=== PATIENT | female | born 1990 | race Caucasian/White ===

== ENCOUNTER 2019-08-25 13:59 | Emergency (ER) | payer BC ==
--- NOTE | 2019-08-25 15:26 | EDM.PDOC ---
ED HPI GENERAL MEDICAL PROBLEM - General Chief Complaint: Abdominal Pain Stated Complaint: BLOOD IN STOOL Time Seen by Provider: 08/25/19 14:30 Source of Information: Reports: Patient History Limitations: Reports: No Limitations - History of Present Illness INITIAL COMMENTS - FREE TEXT/NARRATIVE: Vero is a 29 year old female who presents today after having a bloody stool. 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 Last night she was at a local [employer] restaurant and had cheese dip. She states at 0430 this morning she awoke and had a loose stool. Went back to bed. today around 1 hours prior to arrival in the eR she felt the need to defecate. She had an episode of bright red blood, no stool. She denies any abdominal pain, fevers, chills, vomiting or melena. She states she has not been feeling well all week and has been feeling nauseate. She has never had anything like this before. Abdomen Pain Score (Numeric/FACES): 1 - Related Data Allergies Allergy/AdvReac Type Severity Reaction Status Date / Time No Known Allergies Allergy Verified 08/25/19 14:11 Home Meds: Home Meds . [No Known Home Meds] 08/25/19 [History] Past Medical History - Past Health History Medical/Surgical History: Denies Medical/Surgical History Social & Family History - Tobacco Use Smoking Status *Q: Never Smoker - Caffeine Use Caffeine Use: Reports: Coffee - Recreational Drug Use Recreational Drug Use: No ED ROS GENERAL - Review of Systems Review Of Systems: See Below Constitutional: Reports: Malaise. Denies: Fever, Chills GI/Abdominal: Reports: Bloody Stool, Nausea. Denies: Abdominal Pain, Constipation, Diarrhea, Melena, Vomiting : Reports: No Symptoms ED EXAM, GI/ABD - Physical Exam Exam: See Below Exam Limited By: No Limitations General Appearance: Alert, WD/WN, No Apparent Distress Respiratory/Chest: No Respiratory Distress, Lungs Clear, Normal Breath Sounds Cardiovascular: Normal Peripheral Pulses, Regular Rate, Rhythm, No Murmur GI/Abdominal Exam: Normal Bowel Sounds, Soft, Non-Tender Rectal (Female) Exam: Normal Exam, Normal Rectal Tone, Heme + Stool Neurological: Alert, Oriented, Normal Cognition Psychiatric: Normal Affect, Normal Mood Skin Exam: Warm, Dry, Normal Color Course - Vital Signs Last Recorded V/S: Last Vital Signs Temp 98.4 F 08/25/19 14:15 Pulse 73 08/25/19 14:15 Resp 20 08/25/19 14:15 BP 116/72 08/25/19 14:15 Pulse Ox 99 08/25/19 14:15 - Orders/Labs/Meds Labs: Laboratory Tests 08/25/19 08/25/19 Range/Units 14:48 14:48 WBC 7.15 (3.98-10.04) K/mm3 RBC 3.87 L (3.98-5.22) M/mm3 Hgb 12.4 (11.2-15.7) gm/dl Hct 39.1 (34.1-44.9) % MCV 101.0 H (79.4-94.8) fl MCH 32.0 (25.6-32.2) pg MCHC 31.7 L (32.2-35.5) g/dl RDW Std Deviation 42.8 (36.4-46.3) fL Plt Count 224 (182-369) K/mm3 MPV 11.1 (9.4-12.3) fl Neut % (Auto) 68.6 (34.0-71.1) % Lymph % (Auto) 22.9 (19.3-51.7) % Carson % (Auto) 7.0 (4.7-12.5) % Eos % (Auto) 1.1 (0.7-5.8) Baso % (Auto) 0.3 (0.1-1.2) % Neut # (Auto) 4.90 (1.56-6.13) K/mm3 Lymph # (Auto) 1.64 (1.18-3.74) K/mm3 Carson # (Auto) 0.50 H (0.24-0.36) K/mm3 Eos # (Auto) 0.08 (0.04-0.36) K/mm3 Baso # (Auto) 0.02 (0.01-0.08) K/mm3 Sodium 141 (136-145) mEq/L Potassium 3.9 (3.5-5.1) mEq/L Chloride 104 (98-107) mEq/L Carbon Dioxide 26 (21-32) mEq/L Anion Gap 14.9 (5-15) BUN 8 (7-18) mg/dL Creatinine 0.8 (0.55-1.02) mg/dL Est Cr Clr Drug Dosing 115.97 mL/min Estimated GFR (MDRD) > 60 (>60) mL/min BUN/Creatinine Ratio 10.0 L (14-18) Glucose 99 (74-106) mg/dL Calcium 8.9 (8.5-10.1) mg/dL Total Bilirubin 0.5 (0.2-1.0) mg/dL AST 12 L (15-37) U/L ALT 15 (14-59) U/L Alkaline Phosphatase 59 (46-116) U/L C-Reactive Protein 0.2 (<1.0) mg/dL Total Protein 7.5 (6.4-8.2) g/dl Albumin 3.9 (3.4-5.0) g/dl Globulin 3.6 gm/dL Albumin/Globulin Ratio 1.1 (1-2) - Radiology Interpretation Free Text/Narrative:: abdominal xray shows nothing acute. normal bowel gas pattern, no dilated colon - Re-Assessments/Exams Free Text/Narrative Re-Assessment/Exam: 08/25/19 15:53 I reviewed the labs and imaging with the patient. I feel she is safe to go home at this point. I recommend follow-up with a PCP this week. She may require further testing such as stools studies or a colonoscopy if she does not improve. Discharge instructions as documented. Departure - Departure Time of Disposition: 15:58 Disposition: Home, Self-Care 01 Condition: Good Clinical Impression: Colitis - Discharge Information *PRESCRIPTION DRUG MONITORING PROGRAM REVIEWED*: No *COPY OF PRESCRIPTION DRUG MONITORING REPORT IN PATIENT DOROTHY: No Instructions: Rectal Bleeding, [id number] Referrals: PCP,None [Primary Care Provider] - Sandhya Cuevas PA-C [Physician [employer]] - Forms: ED Department Discharge Additional Instructions: Recommend OTC tylenol or motrin if needing anything for pain. Follow-up with [facility] this week for a recheck of your symptoms. Here in [place] recommend Sandhya Cuevas or Dr. Ellis. Call [phone] to schedule with one of these providers. Recommend bland foods such as soup broth, eggs whites, bread, rice, etc for the next 1-2 days. May advance to a normal diet as tolerated. Please return to the ER should your symptoms change or worsen. Sepsis Event Note - Evaluation Sepsis Screening Result: No Definite Risk - Focused Exam Vital Signs: Vital Signs Temp Pulse Resp BP Pulse Ox 08/25/19 14:15 98.4 F 73 20 116/72 99 Date Exam was Performed: 08/25/19 Time Exam was Performed: 16:13
--- NOTE | 2019-08-25 16:09 | CR ---
Abdomen: Supine and upright views of the abdomen were obtained. Comparison: No previous study. Bowel gas pattern is normal. Calcifications are seen within the left pelvis compatible with phleboliths. No free air is seen. Bony structures are grossly intact. Impression: 1. Nothing acute is seen on 2 view abdominal x-ray. Diagnostic code #1 This report was dictated in [place] Standard Time
== END 2019-08-25 16:15 | disposition home or self-care (01) ==
LOC: JD.ED 13:59
DX: K52.9 Noninfective gastroenteritis and colitis, unspecified (principal)
CPT/HCPCS: 36415; 74019; 74019-26; 80053; 85025; 86140; 99282; 99285